=== PATIENT | female | born 1935 | race Caucasian/White ===

== ENCOUNTER 2020-07-24 23:56 | Emergency (ER) | payer MEDICARE, OTHER ==
[~2020-07-24] VITALS: Ht 154.9 cm; Wt 74.8 kg
[2020-07-25] MEDS ORDERED: LEVSOD100 PO (00:29)
[2020-07-25] MEDS ORDERED: ATEN25 PO (00:29)
[2020-07-25 00:30] LABS: BASOPHILS ABSOLUTE AUTO 0.06 K/mm3 (0.00-0.23); BASOPHILS PERCENT AUTO 1 % (0-2); EOSINOPHILS ABSOLUTE AUTO 0.33 K/mm3 (0.00-0.68); EOSINOPHILS PERCENT AUTO 5 % (0-6); Hematocrit 39.2 % (33.0-51.0); Hemoglobin 12.7 g/dL (11.5-16.0); IMMATURE GRAN ABSOLUTE AUTO 0.02 K/mm3 (0.00-0.10); IMMATURE GRAN PERCENT AUTO 0 % (0-1); LYMPHOCYTES ABSOLUTE AUTO 2.02 K/mm3 (0.84-5.20); LYMPHOCYTES PERCENT AUTO 27 % (21-46); MONOCYTES ABSOLUTE AUTO 0.63 K/mm3 (0.16-1.47); MONOCYTES PERCENT AUTO 9 % (4-13); Mean Corpuscular HGB Conc 32.4 g/dL (31.5-36.5); Mean Corpuscular Volume 96 fL (80-100); Mean Platelet Volume 11.8 fL (9.1-12.4); NEUTROPHILS ABSOLUTE AUTO 4.35 K/mm3 (1.96-9.15); NEUTROPHILS PERCENT AUTO 59 % (41-73); Platelet Count 221 K/mm3 (150-400); RDW Coefficient Variation 12.2 % (11.7-14.2); RDW Standard Deviation 42.8 fL (35.1-46.3); White Blood Cell Count 7.41 K/mm3 (4.00-11.30)
[2020-07-25] MEDS ORDERED: Vitamin B-121000 MCG PO (00:30)
[2020-07-25] MEDS ORDERED: ATOR20 PO (00:30)
[2020-07-25] MEDS ORDERED: MONT10T PO (00:30)
[2020-07-25] MEDS ORDERED: LOSA25 PO (00:30)
[2020-07-25] MEDS ORDERED: CONEST1.25 PO (00:31)
[2020-07-25] MEDS ORDERED: VITAMIN D32000 UNI1 PO (00:31)
[2020-07-25] MEDS ORDERED: SPIR25 PO (00:32)
[2020-07-25] MEDS ORDERED: [UNRECOGNIZED DRUG - OTHER] NS (00:32)
[2020-07-25] MEDS ORDERED: TRAZ50 PO (00:32)
[2020-07-25] MEDS ORDERED: TORS10 PO (00:32)
[2020-07-25] MEDS ORDERED: ALBU8HFA2 INH (00:33)
[2020-07-25] MEDS ORDERED: Aspirin EC81 MG PO (00:33)
[2020-07-25] MEDS ORDERED: DOC250 PO (00:33)
[2020-07-25 00:38] LABS: Anion Gap 3 mmol/L (6-16); Blood Urea Nitrogen 18 mg/dL (8-24); Bun/Creatinine Ratio 20.5 (12.0-20.0); CO2, Blood 32 mmol/L (21-32); Calcium, Blood 9.3 mg/dL (8.5-10.1); Chloride, Blood 109 mmol/L (98-108); Creatinine, Blood 0.88 mg/dL (0.40-1.00); Glomerular Filtration Rate >60 (60-); Glucose, Blood 109 mg/dL (70-99); Sodium, Blood 144 mmol/L (136-145)
== END 2020-07-25 01:37 | disposition home or self-care (01) ==
LOC: ER 23:56
PROVIDERS: Student in an Organized Health Care Education/Training Program
DX: I48.0 Paroxysmal atrial fibrillation (principal); I10 Essential (primary) hypertension; Z79.82 Long term (current) use of aspirin; Z79.899 Other long term (current) drug therapy
CPT/HCPCS: 80048; 85025; 93005; 93010; 99285-25

== ENCOUNTER → 2020-10-31 | Outpatient (CLI) | payer MEDICARE, OTHER ==
[~2020-10-31] MED LIST: ALBU8HFA2 INH; ATEN25 PO; ATOR20 PO; Aspirin EC81 MG PO; CONEST1.25 PO; DOC250 PO; LEVSOD100 PO; LOSA25 PO; MONT10T PO; SPIR25 PO; TORS10 PO; TRAZ50 PO; VITAMIN D32000 UNI1 PO; Vitamin B-121000 MCG PO; [UNRECOGNIZED DRUG - OTHER] NS
== END | disposition home or self-care (01) ==
LOC: LAB SHORT 09:23 → PLD 09:23
DX: D48.5 Neoplasm of uncertain behavior of skin (principal)
CPT/HCPCS: 88305

== ENCOUNTER → 2022-05-17 | Outpatient (CLI) | payer MEDICARE, OTHER ==
[2022-05-17 11:48] LABS: Source, Urine Clean Catch
[2022-05-17 16:03] LABS: Appearance, Urine Clear (Clear); Bilirubin, Urine Neg (Neg); Blood, Urine Neg (Neg); Glucose Qualitative, Urine Neg (Neg); Ketones, Urine Neg (Neg); Leukocyte Esterase, Urine Neg (Neg); Nitrite, Urine Neg (Neg); Protein, Urine Neg (Neg); Urobilinogen, Urine NORM (Normal)
[2022-05-17 16:39] LABS: Color, Urine Pale Yellow (P-Yellow)
== END | disposition home or self-care (01) ==
LOC: LAB SHORT 11:46 → LAB 11:46
PROVIDERS: Internal Medicine
DX: R61 Generalized hyperhidrosis (principal)
CPT/HCPCS: 81003

== ENCOUNTER 2022-11-19 12:20 | Emergency (ER) | payer MEDICARE, OTHER ==
[~2022-11-19] VITALS: Ht 160 cm; Wt 62.6 kg
[2022-11-19 13:55] LABS: Bun/Creatinine Ratio 14.4 (12.0-20.0); Calcium, Blood 9.6 mg/dL (8.5-10.1); Creatinine, Blood 0.9 mg/dL (0.40-1.00); Potassium, Blood 3.5 mmol/L (3.5-5.5)
== END 2022-11-19 15:44 | disposition home or self-care (01) ==
LOC: ER 12:20
PROVIDERS: Student in an Organized Health Care Education/Training Program
DX: R42 Dizziness and giddiness (principal); E86.0 Dehydration; R19.7 Diarrhea, unspecified; Z88.1 Allergy status to other antibiotic agents; Z88.8 Allergy status to other drugs, medicaments and biological substances; Z79.899 Other long term (current) drug therapy; Z79.82 Long term (current) use of aspirin; I10 Essential (primary) hypertension
CPT/HCPCS: 36415; 80048; 93005; 93010; 96360; 99284-25; J7030

== ENCOUNTER → 2023-03-27 | Outpatient (CLI) | payer MEDICARE, OTHER ==
[2023-03-27 16:08] LABS: Appearance, Urine Clear (Clear); Bilirubin, Urine Neg (Neg); Blood, Urine 2+ (Neg); Color, Urine Yellow (P-Yellow); Glucose Qualitative, Urine Neg (Neg); Ketones, Urine Neg (Neg); Leukocyte Esterase, Urine 3+ (Neg); Nitrite, Urine Neg (Neg); Protein, Urine Neg (Neg); Source, Urine Clean Catch; Specific Gravity, Urine 1.005 (1.003-1.022); Urobilinogen, Urine NORM (Normal); pH, Urine 6.5 (5.0-8.0)
[2023-03-27 16:31] LABS: Bacteria Many /hpf; Squamous Epithelial Cells Few /hpf (Few); White Blood Cells, Urine 25-50 /hpf (0-5)
== END | disposition home or self-care (01) ==
LOC: LAB SHORT 13:42 → LAB 13:42
PROVIDERS: Internal Medicine
DX: R30.0 Dysuria (principal)
CPT/HCPCS: 81001; 87077; 87086; 87186

== ENCOUNTER → 2023-04-03 | Outpatient (CLI) | payer MEDICARE, OTHER ==
[2023-04-03 14:24] LABS: Source, Urine Clean Catch
[2023-04-03 15:37] LABS: Appearance, Urine Clear (Clear); Bilirubin, Urine Neg (Neg); Blood, Urine Neg (Neg); Color, Urine Yellow (P-Yellow); Glucose Qualitative, Urine Neg (Neg); Ketones, Urine Neg (Neg); Leukocyte Esterase, Urine Neg (Neg); Nitrite, Urine Neg (Neg); Protein, Urine Neg (Neg); Specific Gravity, Urine 1.005 (1.003-1.022); Urobilinogen, Urine NORM (Normal); pH, Urine 6.5 (5.0-8.0)
== END | disposition home or self-care (01) ==
LOC: LAB SHORT 14:21 → LAB 14:21
PROVIDERS: Internal Medicine
DX: R30.0 Dysuria (principal)
CPT/HCPCS: 81003

== ENCOUNTER → 2024-11-11 | Outpatient (CLI) | payer MEDICARE, OTHER | LOC: LAB SHORT 08:00 → LAB 08:00 | DX: R05.9 Cough, unspecified (principal); R91.1 Solitary pulmonary nodule | CPT/HCPCS: 87070; 87205 ==